=== PATIENT | male | born 1980 | race Caucasian/White ===

== ENCOUNTER 2025-10-17 04:39 | Emergency (ER) | payer MEDICAID ==
[~2025-10-17] VITALS: Ht 177.8 cm; Wt 75.0 kg
[2025-10-17] MEDS: ACETAMINOPHEN 325MG TABLET PO ONE (05:25)
[2025-10-17] MEDS: PREDNISONE 20MG TABLET PO ONE (05:26)
[2025-10-17 05:29] VITALS: PULSE 76; RESP 18; O2SAT 96
[2025-10-17] MEDS: IPRATROPIUM/ALBUTEROL 0.5-3(2.5)MG/3ML NEB HHN ONE (05:29)
[2025-10-17] MEDS ORDERED: ALBU18HF2 IH (06:44)
[2025-10-17] MEDS ORDERED: P50 MT (06:44)
[2025-10-17] MEDS ORDERED: ALBU2SYR23 MT (06:44)
[2025-10-17 07:10] VITALS: BP 123/79; PULSE 99; RESP 20; TEMP 36.7; O2SAT 97
== END 2025-10-17 07:16 | disposition home or self-care (01) ==
LOC: ER 04:39
DX: J45.901 Unspecified asthma with (acute) exacerbation (principal); Z20.822 Contact with and (suspected) exposure to COVID-19
CPT/HCPCS: 71045; 94640; 93005; 99285; J7512; Z7610 ×3; 94070